=== PATIENT | male | born 2000 | race Caucasian/White ===

== ENCOUNTER 2020-12-23 09:51 | Emergency (ER) | payer BC ==
[~2020-12-23] VITALS: Ht 175.3 cm; Wt 70.9 kg
[2020-12-23 10:31] VITALS: BP 99/81
== END 2020-12-23 10:55 | disposition home or self-care (01) ==
LOC: ER 09:52
DX: F41.0 Panic disorder [episodic paroxysmal anxiety] (principal); G43.909 Migraine, unspecified, not intractable, without status migrainosus; F41.9 Anxiety disorder, unspecified; F32.9 Major depressive disorder, single episode, unspecified; Z72.89 Other problems related to lifestyle
CPT/HCPCS: 99283